=== PATIENT | female | born 1940 | race Caucasian/White ===

== ENCOUNTER 2018-10-28 12:53 | Emergency (ER) | payer MEDICARE ==
[2018-10-28] MEDS ORDERED: DUONEB 0.5-3 MG/3 ml Neb IH ONE ×2 (13:55→14:28)
--- NOTE | 2018-10-28 14:01 | ERPHSYRPT ---
- History of Present Illness Time Seen by Provider: 10/28/18 13:49 Source: patient Exam Limitations: no limitations Patient Subjective Stated Complaint: PT STATES SHE HAS BEEN SHORT OF BREATH FOR APPROX 1.5 WEEKS. STATES SHE STOPPED TAKING BUMEX APPROX 2 WEEKS AGO, BUT BEGAN TAKING AGAIN A FEW DAYS AGO. ON AND OFF ABOMINAL PAIN, NO VOMITING OR DIARRHEA. PT STATES SHE WEARS HER OXYGEN AT 5L AT HOME AND SOMETIMES IT DOESN'T FEEL LIKE IT IS ENOUGH. Triage Nursing Assessment: ALERT AND ORIENTED. FORGETFUL, PT IS POOR HISTORIAN. DAUGHTER AT BEDSIDE FROM OUT OF TOWN BUT DOES HELP PT. LUNGS DIMINSHED BILATERAL. BOWEL SOUNDS PRESENT X 4 QUADS. Physician History: 78-year-old white female with history of COPD, liver disease, arthritis, brought by her family with complaint that she's been short of breath for one half weeks occasionally complaining of periumbilical pain. She denies any chest pain she has not had any nausea no vomiting she has no diarrhea. She has some occasional periumbilical abdominal pain. She does state that she' s been on Bumex for approximately 2-3 weeks. Patient has not had any fevers. She apparently has told the nurses that oxygen at 5 L at home is not enough. Past medical history includes liver disease, COPD, arthritis Past surgical history includes hemorrhoidectomy Social history patient denies tobacco alcohol or illicit drug use Timing/Duration: week(s) (oon her half weeks) Activities at Onset: none Severity of Dyspnea-Max: mild Severity of Dyspnea-Current: mild Modifying Factors: Improves With: nothing Associated Symptoms: constant, No intermittent, No anxiety, No cough, No chest pain/discomfort, No edema, No fever, No insomnia, No loss of appetite, No lightheadedness, No wheezing, No weakness, No ankle swelling, No chills, No hemoptysis, No calf pain, No dizziness, No heaviness, No heart racing, No lightheadedness, No leg swelling, No muscle spasms feet, No muscle spasms hands , No painful breathing, No productive cough, No sweating, No tightness, No tingling face, No tingling hands International travel in last 2 weeks: No Allergies/Adverse Reactions: No Known Drug Allergies Allergy (Unverified 10/28/18 13:01) Home Medications: Albuterol Common Canister [Proventil Common Canister] 2 puff IH Q4HPRN PRN 10/28/18 [History] Bumetanide 1 mg [Bumex 1 mg] 1 mg PO UD 10/28/18 [History] Fluticasone/Salmeterol [Advair 250-50 Diskus] 1 each IH BID 10/28/18 [History] - Review of Systems Constitutional: No Fever, No Chills Eyes: No Symptoms Ears, Nose, & Throat: No Symptoms Respiratory: Dyspnea Cardiac: No Chest Pain, No Edema, No Syncope Abdominal/Gastrointestinal: Abdominal Pain (periumbilical abdominal pain), No Nausea, No Vomiting, No Diarrhea, No Constipation, No Hematemesis, No Hematochezia, No Melena, No Dysphagia, No Appetite Changes Genitourinary Symptoms: No Dysuria Musculoskeletal: No Back Pain, No Neck Pain Skin: No Rash Neurological: No Dizziness, No Focal Weakness, No Sensory Changes Psychological: No Symptoms Endocrine: No Symptoms All Other Systems: Reviewed and Negative - Past Medical History ENT History: No Pertinent History Respiratory History: COPD Endocrine Medical History: Liver Disease Musculoskeletal History: Arthritis GI Medical History: No Pertinent History History: Other Other Medical History: PT POOR HISTORIAN - Past Surgical History Past Surgical History: Yes Gastrointestinal: Hemorrhoidectomy - Social History Smoking Status: Former smoker Drug Use: none - Nursing Vital Signs Nursing Vital Signs: Initial Vital Signs Temperature 97.9 F 10/28/18 12:54 Pulse Rate 76 10/28/18 12:54 Respiratory Rate 20 10/28/18 12:54 Blood Pressure 131/75 10/28/18 12:54 O2 Sat by Pulse Oximetry 96 10/28/18 12:54 - Physical Exam General Appearance: no apparent distress Eye Exam: PERRL/EOMI Ears, Nose, Throat Exam: hearing grossly normal, normal ENT inspection, normal pharynx, No abnormal TM (R), No abnormal TM (L), No sinus pain/drainage, No hearing decreased, No nasal congestion, No pharyngeal erythema, No tonsillar exudate Neck Exam: normal inspection, supple Respiratory Exam: diminished breath sounds, No crackles/rales, No rhonchi, No wheezing Cardiovascular/Chest Exam: normal heart sounds, regular rate/rhythm Abdominal/Gastrointestinal Exam: soft, normal bowel sounds, No tenderness, No distention, No mass Extremity Exam: non-tender, normal range of motion, normal inspection, no calf tenderness, no pedal edema Peripheral Pulses Exam: dorsalis-pedis (R): 2+, dorsalis-pedis (L): 2+ Neurologic Exam: alert, oriented x 3, cooperative, corporate pilot II-XII nml as tested, sensation nml, No motor deficits Skin Exam: normal color, warm, No dry SpO2 Interpretation: normal (96%) SpO2: 96 - Course Nursing assessment & vital signs reviewed: Yes EKG Interpreted by Me: RATE (81 bpm), Sinus Rhythm, Left [place] Deviation, Other ( EKG: Sinus rhythm,, 81 beats per minute, left axis deviation, complete right bundle branch block, new since April 25, 2011,.) - Radiology Exams Chest X-ray Interpretation: Discussed w/ radiologist (chest x-ray: Chest remains hyperinflated with minimal left base infiltrates versus atelectasis. Remaining heart and lungs unremarkable. Bony thorax intact with mild degenerative changes ) Ordered Tests: Active Orders 24 hr Category Date Time Status EKG-ER Only STAT Care 10/28/18 13:55 Active IV Insertion STAT Care 10/28/18 13:55 Active Pulse Oximetry (ED) STAT Care 10/28/18 13:55 Active CHEST 1 VIEW (PORTABLE) Stat Exams 10/28/18 13:56 Completed AMYLASE Stat Lab 10/28/18 14:09 Completed CBC W DIFF Stat Lab 10/28/18 14:09 Completed CMP Stat Lab 10/28/18 14:09 Completed LIPASE Stat Lab 10/28/18 14:09 Completed NT PRO BNP Stat Lab 10/28/18 14:09 Completed TROPONIN Q3H Lab 10/28/18 14:09 Completed TROPONIN Q3H Lab 10/28/18 17:00 Ordered TROPONIN Q3H Lab 10/28/18 20:00 Ordered TROPONIN Q3H Lab 10/28/18 23:00 Ordered TROPONIN Q3H Lab 10/29/18 02:00 Ordered UA W/RFX UR CULTURE Stat Lab 10/28/18 13:56 Completed VENOUS BLOOD GAS Stat Lab 10/28/18 14:05 Completed Respiratory Therapy Assessment DAILY RT 10/29/18 07:00 Completed Medication Summary Generic Name Dose Route Start Last Admin Trade Name Freq PRN Reason Stop Dose Admin Ceftriaxone Sodium/Dextrose 1 g in 50 mls @ 100 mls/hr 10/28/18 15:45 Rocephin 1 Gm-D5w 50 Ml Bag IV 10/28/18 16:14 STAT STA Discontinued Medications Generic Name Dose Route Start Last Admin Trade Name Charley PRN Reason Stop Dose Admin Albuterol/Ipratropium 3 ml 10/28/18 13:55 10/28/18 14:30 Duoneb 0.5-3 Mg/3 Ml Neb IH 10/28/18 13:56 3 ml STAT ONE Administration Albuterol/Ipratropium Confirm 10/28/18 14:28 Duoneb 0.5-3 Mg/3 Ml Neb Administered 10/28/18 14:29 Dose 3 ml IH .STK-MED ONE Methylprednisolone Sodium Succinate 125 mg 10/28/18 15:45 Solu-Medrol 125 Mg IV 10/28/18 15:46 STAT ONE Lab/Rad Data: Laboratory Result Diagrams 10/28/18 14:09 10/28/18 14:09 Laboratory Results 10/28/18 10/28/18 10/28/18 Range/Units 14:09 14:09 14:09 WBC (4.0-10.5) K/mm3 RBC (4.1-5.4) M/mm3 Hgb (12.0-16.0) gm/dl Hct (35-47) % MCV (78-100) fl MCH (26-32) pg MCHC (32-36) g/dl RDW (11.5-14.0) % Plt Count (150-450) K/mm3 MPV (6-9.5) fl Gran % (36.0-66.0) % Eos # (Auto) (0-0.5) Absolute Lymphs (auto) (1.0-4.6) Absolute Monos (auto) (0.0-1.3) Lymphocytes % (24.0-44.0) % Monocytes % (0.0-12.0) % Eosinophils % (0.00-5.0) % Basophils % (0.0-0.4) % Absolute Granulocytes (1.4-6.9) Basophils # (0-0.4) pO2/FiO2 Ratio % VBG pH (7.32-7.42) VBG pCO2 at Pat Temp (42-55) mm/Hg VBG pO2 at Pat Temp (25-40) mm/Hg VBG HCO3 (22-28) meq/L VBG O2 Sat (Ryann) (95-100) VBG Base Excess (-2.0-2.0) VBG Hemoglobin VBG Carboxyhemoglobin (0.0-6.9) % T HGB POC Potassium (3.5-5.1) Sodium 142 (137-145) mmol/L Potassium 3.5 (3.5-5.1) mmol/L Chloride 95 L (98-107) mmol/L Carbon Dioxide 37 H (22-30) mmol/L Anion Gap 12.8 (5-15) MEQ/L BUN 12 (7-17) mg/dL Creatinine 0.75 (0.52-1.04) mg/dL Estimated GFR > 60.0 ML/MIN Glucose 94 (74-106) mg/dL Calcium 9.9 (8.4-10.2) mg/dL Total Bilirubin 0.60 (0.2-1.3) mg/dL AST 24 (14-36) U/L ALT 15 (0-35) U/L Alkaline Phosphatase 73 (38-126) U/L Troponin I < 0.012 (0.000-0.034) ng/mL NT-Pro-B Natriuret Pep 202 (0-1800) pg/mL Serum Total Protein 7.8 (6.3-8.2) g/dL Albumin 4.3 (3.5-5.0) g/dL Amylase 35 (30-110) U/L Lipase 70 (23-300) U/L Urine Color (YELLOW) Urine Appearance (CLEAR) Urine pH (5-6) Ur Specific [place] (1.005-1.025) Urine Protein (Negative) Urine Ketones (NEGATIVE) Urine Blood (0-5) [place]/ul Urine Nitrite (NEGATIVE) Urine Bilirubin (NEGATIVE) Urine Urobilinogen (0-1) mg/dL Ur Leukocyte Esterase (NEGATIVE) Urine WBC (Auto) (0-5) /HPF Urine RBC (Auto) (0-2) /HPF U Epithel Cells (Auto) (FEW) /HPF Urine Bacteria (Auto) (NEGATIVE) /HPF Urine Mucus (Auto) (NEGATIVE) /HPF Urine Culture Reflexed (NO) Urine Glucose (NEGATIVE) mg/dL 10/28/18 10/28/18 10/28/18 Range/Units 14:09 14:05 13:56 WBC 7.8 (4.0-10.5) K/mm3 RBC 4.47 (4.1-5.4) M/mm3 Hgb 13.9 (12.0-16.0) gm/dl Hct 43.6 (35-47) % MCV 97.5 (78-100) fl MCH 31.1 (26-32) pg MCHC 31.9 L (32-36) g/dl RDW 13.3 (11.5-14.0) % Plt Count 219 (150-450) K/mm3 MPV 9.3 (6-9.5) fl Gran % 63.1 (36.0-66.0) % Eos # (Auto) 0.17 (0-0.5) Absolute Lymphs (auto) 2.00 (1.0-4.6) Absolute Monos (auto) 0.66 (0.0-1.3) Lymphocytes % 25.8 (24.0-44.0) % Monocytes % 8.5 (0.0-12.0) % Eosinophils % 2.2 (0.00-5.0) % Basophils % 0.4 (0.0-0.4) % Absolute Granulocytes 4.90 (1.4-6.9) Basophils # 0.03 (0-0.4) pO2/FiO2 Ratio 21.0 % VBG pH 7.40 (7.32-7.42) VBG pCO2 at Pat Temp 63 H* (42-55) mm/Hg VBG pO2 at Pat Temp 41 H (25-40) mm/Hg VBG HCO3 39.0 H* (22-28) meq/L VBG O2 Sat (Ryann) 82.1 L (95-100) VBG Base Excess 11.4 H (-2.0-2.0) VBG Hemoglobin 14.3 VBG Carboxyhemoglobin 2.6 (0.0-6.9) % T HGB POC Potassium 3.4 L (3.5-5.1) Sodium (137-145) mmol/L Potassium (3.5-5.1) mmol/L Chloride (98-107) mmol/L Carbon Dioxide (22-30) mmol/L Anion Gap (5-15) MEQ/L BUN (7-17) mg/dL Creatinine (0.52-1.04) mg/dL Estimated GFR ML/MIN Glucose (74-106) mg/dL Calcium (8.4-10.2) mg/dL Total Bilirubin (0.2-1.3) mg/dL AST (14-36) U/L ALT (0-35) U/L Alkaline Phosphatase (38-126) U/L Troponin I (0.000-0.034) ng/mL NT-Pro-B Natriuret Pep (0-1800) pg/mL Serum Total Protein (6.3-8.2) g/dL Albumin (3.5-5.0) g/dL Amylase (30-110) U/L Lipase (23-300) U/L Urine Color YELLOW (YELLOW) Urine Appearance SLIGHTLY CLOUDY (CLEAR) Urine pH 8.0 (5-6) Ur Specific [place] 1.013 (1.005-1.025) Urine Protein NEGATIVE (Negative) Urine Ketones NEGATIVE (NEGATIVE) Urine Blood NEGATIVE (0-5) [place]/ul Urine Nitrite NEGATIVE (NEGATIVE) Urine Bilirubin NEGATIVE (NEGATIVE) Urine Urobilinogen 2 (0-1) mg/dL Ur Leukocyte Esterase MODERATE (NEGATIVE) Urine WBC (Auto) 6-10 (0-5) /HPF Urine RBC (Auto) 0-2 (0-2) /HPF U Epithel Cells (Auto) RARE (FEW) /HPF Urine Bacteria (Auto) RARE (NEGATIVE) /HPF Urine Mucus (Auto) SLIGHT (NEGATIVE) /HPF Urine Culture Reflexed NO (NO) Urine Glucose NEGATIVE (NEGATIVE) mg/dL - Progress Progress: improved Air Movement: fair Progress Note: 10/28/18 15:46 Patient feeling better after DuoNeb treatment. Patient with a chest x-ray remarkable for hyperinflated chest with minimal left base infiltrate versus atelectasis. Patient with mildly elevated PCO2 of 60. Patient wants to go home she appears to be doing well she has oxygen as well as nebulizers at home will go ahead and give patient Rocephin 1 g IV Solu-Medrol 125 IV plan home with Zithromax and tapering dose of prednisone patient to continue her inhalers at home. . - Departure Departure Disposition: Home Clinical Impression: Shortness of breath, COPD with exacerbation Condition: Fair Critical Care Time: No Referrals: Provider,Unknown [Primary Care Provider] - Instructions: Chronic Obstructive Pulmonary Disease, Exacerbation of COPD (DC) Additional Instructions: Return home. Use your nebulizers as directed by your family . Zithromax as prescribed. Tapering prednisone as prescribed. Followup with your family call and make an appointment for followup. Return for acute distress or for severe symptoms. Prescriptions: Azithromycin 250 mg [Zithromax 250 MG TABLET] 0 mg PO ZPACK #6 tablet
[2018-10-28 14:13] LABS: BASOPHIL % 0.4 % (0.0-0.4); Basophil (Absolute #) 0.03 (0-0.4); Eosinophil % 2.2 % (0.00-5.0); Eosinophil (Absolute #) 0.17 (0-0.5); Granulocytes % 63.1 % (36.0-66.0); Hematocrit 43.6 % (35-47); Hemoglobin 13.9 gm/dl (12.0-16.0); Lymphocytes % 25.8 % (24.0-44.0); Mean Cell Volume 97.5 fl (78-100); Mean Corpuscular Hemoglobin 31.1 pg (26-32); Mean Corpuscular Hgb Concent. 31.9 g/dl (32-36); Mean Platelet Volume 9.3 fl (6-9.5); Monocyte (Absolute #) 0.66 (0.0-1.3); Monocytes % 8.5 % (0.0-12.0); Platelet Count 219 K/mm3 (150-450); Red Blood Count 4.47 M/mm3 (4.1-5.4); Red Cell Distribution Width 13.3 % (11.5-14.0); White Blood Count 7.8 K/mm3 (4.0-10.5)
[2018-10-28 14:14] LABS: VBG BASE EXCESS 11.4 (-2.0-2.0); VBG CARBOXYHEMOGLOBIN 2.6 % T HGB (0.0-6.9); VBG HEMOGLOBIN 14.3; VBG O2 SATURATION 82.1 (95-100); VBG POTASSIUM 3.4 (3.5-5.1); VBG pH 7.4 (7.32-7.42)
[2018-10-28 14:26] LABS: AMYLASE 35 U/L (30-110); LIPASE 70 U/L (23-300)
[2018-10-28 14:28] LABS: Appearance SLIGHTLY CLOUDY (CLEAR); Bacteria RARE /HPF (NEGATIVE); Bilirubin NEGATIVE (NEGATIVE); Blood NEGATIVE Ery/ul (0-5); Epithelial Cells RARE /HPF (FEW); Glucose NEGATIVE (NEGATIVE); Ketones NEGATIVE (NEGATIVE); Leukocyte Esterase MODERATE (NEGATIVE); Mucus SLIGHT /HPF (NEGATIVE); Nitrite NEGATIVE (NEGATIVE); Protein,Urine Dip NEGATIVE (Negative); RBC 0-2 /HPF (0-2); Specific Gravity 1.013 (1.005-1.025); Urobilinogen 2 mg/dL (0-1)
[2018-10-28 14:35] LABS: ALBUMIN 4.3 g/dL (3.5-5.0); ALKALINE PHOSPHATASE 73 U/L (38-126); ANION GAP 12.8 MEQ/L (5-15); BLOOD UREA NITROGEN 12 mg/dL (7-17); CHLORIDE 95 mmol/L (98-107); Calcium 9.9 mg/dL (8.4-10.2); Carbon Dioxide 37 mmol/L (22-30); Creatinine 1 0.75 mg/dL (0.52-1.04); Glucose 94 mg/dL (74-106); NT PRO BNP 202 pg/mL (0-1800); Potassium 3.5 mmol/L (3.5-5.1); SGOT/AST 24 U/L (14-36); SGPT/ALT 15 U/L (0-35); SODIUM 142 mmol/L (137-145); Total Protein 7.8 g/dL (6.3-8.2)
[2018-10-28 14:44] VITALS: O2SAT 96
--- NOTE | 2018-10-28 14:54 | XRAY ---
Indication: Short of breath. Comparison: September 04, 2012. Portable chest remains hyperinflated again with minimal left base infiltrate versus atelectasis. Remaining heart and lungs unremarkable. Bony thorax intact again with mild degenerative changes.
[2018-10-28] MEDS ORDERED: solu-MEDROL 125 MG IV ONE (15:45)
[2018-10-28] MEDS ORDERED: ROCEPHIN 1 Gm-D5w 50 ml Bag** 1 G/50 ML IVPB IV STA (15:45)
[2018-10-28] MEDS ORDERED: solu-MEDROL 125 MG ONE (16:02)
[2018-10-28] MEDS ORDERED: ROCEPHIN 1 Gm-D5w 50 ml Bag** 1 G/50 ML IVPB IV ONE (16:02)
[2018-10-28 16:56] VITALS: BP 110/79; PULSE 72
== END 2018-10-28 17:00 | disposition home or self-care (01) ==
LOC: ED 12:53
DX: R06.02 Shortness of breath (principal); J44.1 Chronic obstructive pulmonary disease with (acute) exacerbation; K76.9 Liver disease, unspecified; M19.90 Unspecified osteoarthritis, unspecified site; Z79.899 Other long term (current) drug therapy
CPT/HCPCS: 36000; 36415; 71045; 80053; 81001; 82150; 82805; 83690; 83880; 84484; 85025; 93005; 94640; 96365; 96374; 99284; J0696; J2930; A9270-GY

== ENCOUNTER 2020-02-11 17:28 | Emergency (ER) | payer MEDICARE ==
--- NOTE | 2020-02-11 17:52 | ERPHSYRPT ---
- History of Present Illness Time Seen by Provider: 02/11/20 17:44 Source: patient Exam Limitations: no limitations Patient Subjective Stated Complaint: pt began having weakness approx 2 days and feeling nauseous Triage Nursing Assessment: Pt brought to the ER by her son, hypertensive, denies pain, no edema, pulses normal, skin n/w/d, doesn't appear to be in any distress Physician History: Patient is a 79-year-old female presents to our ED with complaints of generalized weakness for 2 days. Patient additionally states she feels somewhat nauseous. Patient denies pain. No fever. No vomiting. No diarrhea. No rash. Symptoms are constant. Patient states that she has been moving doing a lot of bending and lifting and thinks that this may be contributing to her feeling or sensation of generalized weakness. Patient voices no other complaints concerns at this time. Timing/Duration: day(s) (2 days) Severity: moderate Modifying Factors: Improves With: other Associated Symptoms: nausea, No vomiting, No abdominal pain, No shortness of breath, No heartburn, No diaphoresis, No cough, No chills, No chest pain, No fever, No headaches, No loss of appetite, No malaise, No rash, No syncope Allergies/Adverse Reactions: No Known Drug Allergies Allergy (Verified 02/11/20 17:47) Home Medications: Albuterol Common Canister [Ventolin Common Canister] 2 puff IH Q4HPRN PRN 10/28/18 [History] Fluticasone/Salmeterol [Advair 250-50 Diskus] 1 each IH BID 10/28/18 [History] Albuterol 8 gm Mdi Hfa [Ventolin Hfa MDI] 1 inh PO UD 02/11/20 [History] Travel Risk - International Travel Have you traveled outside of the country in past 3 weeks: No - Coronavirus Screening Are you exhibiting any of the following symptoms?: No Close contact with a COVID-19 positive Pt in past 14-21 Days: No - Review of Systems Constitutional: No Symptoms, No Fever, No Chills Eyes: No Symptoms Ears, Nose, & Throat: No Symptoms Respiratory: No Symptoms, No Cough, No Dyspnea Cardiac: No Symptoms, No Chest Pain, No Edema, No Syncope Abdominal/Gastrointestinal: No Symptoms, No Abdominal Pain, No Nausea, No Vomiting, No Diarrhea Genitourinary Symptoms: No Symptoms, No Dysuria Musculoskeletal: No Symptoms, No Back Pain, No Neck Pain Skin: No Symptoms, No Rash Neurological: No Symptoms, No Dizziness, No Focal Weakness, No Sensory Changes Psychological: No Symptoms Endocrine: No Symptoms Hematologic/Lymphatic: No Symptoms Immunological/Allergic: No Symptoms All Other Systems: Reviewed and Negative - Past Medical History Pertinent Past Medical History: Yes ENT History: No Pertinent History Respiratory History: COPD Endocrine Medical History: Liver Disease Musculoskeletal History: Arthritis GI Medical History: No Pertinent History History: Other Other Medical History: PT POOR HISTORIAN - Past Surgical History Past Surgical History: Yes Gastrointestinal: Hemorrhoidectomy - Social History Smoking Status: Former smoker Exposure to second hand smoke: No Drug Use: none Patient Lives Alone: Yes - Female History Hx Now: No - Nursing Vital Signs Nursing Vital Signs: Initial Vital Signs Temperature 98.7 F 02/11/20 17:40 Pulse Rate 86 02/11/20 17:40 Respiratory Rate 18 02/11/20 17:40 Blood Pressure 162/91 02/11/20 17:40 O2 Sat by Pulse Oximetry 96 02/11/20 17:40 Pain Scale Pain Intensity 0 - Physical Exam General Appearance: no apparent distress, alert Eye Exam: PERRL/EOMI, eyes nml inspection Ears, Nose, Throat Exam: normal ENT inspection, TMs normal, pharynx normal, m oist mucous membranes Neck Exam: normal inspection, non-tender, supple, full range of motion Respiratory Exam: normal breath sounds, lungs clear, No respiratory distress Cardiovascular Exam: regular rate/rhythm, normal heart sounds, normal peripheral pulses Gastrointestinal/Abdomen Exam: soft, normal bowel sounds, No tenderness, No mass Back Exam: normal inspection, normal range of motion, No CVA tenderness, No vertebral tenderness Extremity Exam: normal inspection, normal range of motion, pelvis stable Neurologic Exam: alert, oriented x 3, cooperative, normal mood/affect, nml cerebellar function, nml station & gait, sensation nml, No motor deficits Skin Exam: normal color, warm, dry, No rash Lymphatic Exam: No adenopathy SpO2 Interpretation: normal SpO2: 96 O2 Delivery: Room Air - Course Nursing assessment & vital signs reviewed: Yes EKG Interpreted by Me: RATE (84), Sinus Rhythm, NORMAL AXIS, Left Bundle Branch Block, Other (EKG unchanged from previous EKG dated October 28, 2018.) - Radiology Exams Chest X-ray Interpretation: Teleradiologist Report (Stable subtle left base infiltrate versus atelectasis COPD.) Ordered Tests: Active Orders 24 hr Category Date Time Status Manager Sign STAT Care 02/11/20 17:48 Active EKG-ER Only STAT Care 02/11/20 17:48 Active IV Insertion STAT Care 02/11/20 17:48 Active Pulse Oximetry (ED) STAT Care 02/11/20 17:48 Active CHEST 1 VIEW (PORTABLE) Stat Exams 02/11/20 17:48 Taken CBC W DIFF Stat Lab 02/11/20 18:00 Completed CMP Stat Lab 02/11/20 18:00 Completed MAGNESIUM Stat Lab 02/11/20 18:00 Completed TROPONIN Q3H Lab 02/11/20 18:00 Completed TROPONIN Q3H Lab 02/11/20 21:04 Completed TROPONIN Q3H Lab 02/12/20 00:00 Ordered TROPONIN Q3H Lab 02/12/20 03:00 Ordered TROPONIN Q3H Lab 02/12/20 06:00 Ordered UA W/RFX UR CULTURE Stat Lab 02/11/20 19:19 Completed Lab/Rad Data: Laboratory Result Diagrams 02/11/20 18:00 02/11/20 18:00 Laboratory Results 02/11/20 02/11/20 02/11/20 Range/Units 21:04 19:19 18:00 WBC (4.0-10.5) K/mm3 RBC (4.1-5.4) M/mm3 Hgb (12.0-16.0) gm/dl Hct (35-47) % MCV (78-100) fl MCH (26-32) pg MCHC (32-36) g/dl RDW (11.5-14.0) % Plt Count (150-450) K/mm3 MPV (7.5-11.0) fl Gran % (36.0-66.0) % Eos # (Auto) (0-0.5) Absolute Lymphs (auto) (1.0-4.6) Absolute Monos (auto) (0.0-1.3) Lymphocytes % (24.0-44.0) % Monocytes % (0.0-12.0) % Eosinophils % (0.00-5.0) % Basophils % (0.0-0.4) % Absolute Granulocytes (1.4-6.9) Basophils # (0-0.4) Sodium (137-145) mmol/L Potassium (3.5-5.1) mmol/L Chloride (98-107) mmol/L Carbon Dioxide (22-30) mmol/L Anion Gap (5-15) MEQ/L BUN (7-17) mg/dL Creatinine (0.52-1.04) mg/dL Estimated GFR ML/MIN Glucose (74-106) mg/dL Calcium (8.4-10.2) mg/dL Magnesium (1.6-2.3) mg/dL Total Bilirubin (0.2-1.3) mg/dL AST (14-36) U/L ALT (0-35) U/L Alkaline Phosphatase (38-126) U/L Troponin I < 0.012 < 0.012 (0.000-0.034) ng/mL Serum Total Protein (6.3-8.2) g/dL Albumin (3.5-5.0) g/dL Urine Color STRAW (YELLOW) Urine Appearance CLEAR (CLEAR) Urine pH 8.0 (5-6) Ur Specific [place] 1.004 (1.005-1.025) Urine Protein NEGATIVE (Negative) Urine Ketones NEGATIVE (NEGATIVE) Urine Blood SMALL (0-5) [place]/ul Urine Nitrite NEGATIVE (NEGATIVE) Urine Bilirubin NEGATIVE (NEGATIVE) Urine Urobilinogen NEGATIVE (0-1) mg/dL Ur Leukocyte Esterase SMALL (NEGATIVE) Urine WBC (Auto) 3-5 (0-5) /HPF Urine RBC (Auto) NONE (0-2) /HPF U Epithel Cells (Auto) NONE (FEW) /HPF Urine Bacteria (Auto) NONE (NEGATIVE) /HPF Other Casts (Auto) NEGATIVE (NEGATIVE) /LPF Urine Culture Reflexed NO (NO) Urine Glucose NEGATIVE (NEGATIVE) mg/dL 02/11/20 02/11/20 Range/Units 18:00 18:00 WBC 6.6 (4.0-10.5) K/mm3 RBC 4.48 (4.1-5.4) M/mm3 Hgb 13.4 (12.0-16.0) gm/dl Hct 43.7 (35-47) % MCV 97.5 (78-100) fl MCH 29.9 (26-32) pg MCHC 30.7 L (32-36) g/dl RDW 13.1 (11.5-14.0) % Plt Count 190 (150-450) K/mm3 MPV 9.8 (7.5-11.0) fl Gran % 65.8 (36.0-66.0) % Eos # (Auto) 0.19 (0-0.5) Absolute Lymphs (auto) 1.48 (1.0-4.6) Absolute Monos (auto) 0.57 (0.0-1.3) Lymphocytes % 22.4 L (24.0-44.0) % Monocytes % 8.6 (0.0-12.0) % Eosinophils % 2.9 (0.00-5.0) % Basophils % 0.3 (0.0-0.4) % Absolute Granulocytes 4.35 (1.4-6.9) Basophils # 0.02 (0-0.4) Sodium 137 (137-145) mmol/L Potassium 4.0 (3.5-5.1) mmol/L Chloride 95 L (98-107) mmol/L Carbon Dioxide 36 H (22-30) mmol/L Anion Gap 10.3 (5-15) MEQ/L BUN 13 (7-17) mg/dL Creatinine 0.66 (0.52-1.04) mg/dL Estimated GFR > 60.0 ML/MIN Glucose 98 (74-106) mg/dL Calcium 9.7 (8.4-10.2) mg/dL Magnesium 2.0 (1.6-2.3) mg/dL Total Bilirubin 0.60 (0.2-1.3) mg/dL AST 27 (14-36) U/L ALT 13 (0-35) U/L Alkaline Phosphatase 65 (38-126) U/L Troponin I (0.000-0.034) ng/mL Serum Total Protein 7.7 (6.3-8.2) g/dL Albumin 4.5 (3.5-5.0) g/dL Urine Color (YELLOW) Urine Appearance (CLEAR) Urine pH (5-6) Ur Specific [place] (1.005-1.025) Urine Protein (Negative) Urine Ketones (NEGATIVE) Urine Blood (0-5) [place]/ul Urine Nitrite (NEGATIVE) Urine Bilirubin (NEGATIVE) Urine Urobilinogen (0-1) mg/dL Ur Leukocyte Esterase (NEGATIVE) Urine WBC (Auto) (0-5) /HPF Urine RBC (Auto) (0-2) /HPF U Epithel Cells (Auto) (FEW) /HPF Urine Bacteria (Auto) (NEGATIVE) /HPF Other Casts (Auto) (NEGATIVE) /LPF Urine Culture Reflexed (NO) Urine Glucose (NEGATIVE) mg/dL - Progress Progress: improved Progress Note: 02/11/20 21:57 Patient reassessed. She feels well. Patient requesting discharge. Chest x-ray negative as compared to previous per radiology. Troponin negative x2. Patient requesting discharge. Will discharge home. Patient agrees to follow-up with her primary care doctor within 48 hours for reevaluation. 02/11/20 21:58 Counseled pt/family regarding: lab results, diagnosis, need for follow-up, rad results - Departure Departure Disposition: Home Clinical Impression: Generalized weakness Condition: Stable Critical Care Time: No Referrals: DOCTOR,NO FAMILY [Primary Care Provider] - TYSHAWN AMES [ACTIVE STAFF] - Additional Instructions: Discharge/Care Plan ALESIA LOWRY was seen on 02/11/20 in the Emergency Room. The patient was counseled regarding Diagnosis,Lab results, Imaging studies, need for follow up and when to return to the Emergency Room. Prescriptions given: Discharge Note I have spoken with the patient and/or caregivers. I have explained the patient's condition, diagnosis and treatment plan based on the information available to me at this time. I have answered the patient's and/or caregiver's questions and addressed any concerns. The patient and/or caregivers have as good understanding of the patient's diagnosis, condition and treatment plan as can be expected at this point. The vital signs have been stable. The patient's condition is stable and appropriate for discharge from the emergency department. The patient will pursue further outpatient evaluation with the primary care physician or other designated or consulting physician as outlined in the discharge instructions. The patient and/or caregivers are agreeable to this plan of care and follow-up instructions have been explained in detail. The patient and/or caregivers have received these instruction. The patient/and or caregivers are aware that any significant change in condition or worsening of symptoms should prompt an immediate return to this or the closest emergency department or call 911.
[2020-02-11 18:05] LABS: Absolute Neutrophil Ct (ANC) 4.35 (1.4-6.9); BASOPHIL % 0.3 % (0.0-0.4); Basophil (Absolute #) 0.02 (0-0.4); Eosinophil % 2.9 % (0.00-5.0); Eosinophil (Absolute #) 0.19 (0-0.5); Hematocrit 43.7 % (35-47); Hemoglobin 13.4 gm/dl (12.0-16.0); Lymphocyte (Absolute #) 1.48 (1.0-4.6); Lymphocytes % 22.4 % (24.0-44.0); Mean Cell Volume 97.5 fl (78-100); Mean Corpuscular Hemoglobin 29.9 pg (26-32); Mean Corpuscular Hgb Concent. 30.7 g/dl (32-36); Mean Platelet Volume 9.8 fl (7.5-11.0); Monocyte (Absolute #) 0.57 (0.0-1.3); Monocytes % 8.6 % (0.0-12.0); Neutrophil % 65.8 % (36.0-66.0); Platelet Count 190 K/mm3 (150-450); Red Blood Count 4.48 M/mm3 (4.1-5.4); Red Cell Distribution Width 13.1 % (11.5-14.0); White Blood Count 6.6 K/mm3 (4.0-10.5)
[2020-02-11 18:18] LABS: ALBUMIN 4.5 g/dL (3.5-5.0); ALKALINE PHOSPHATASE 65 U/L (38-126); ANION GAP 10.3 MEQ/L (5-15); BLOOD UREA NITROGEN 13 mg/dL (7-17); CHLORIDE 95 mmol/L (98-107); Calcium 9.7 mg/dL (8.4-10.2); Carbon Dioxide 36 mmol/L (22-30); Creatinine 1 0.66 mg/dL (0.52-1.04); EST GLOMERULAR FILTRATION RATE > 60.0 ML/MIN; Glucose 98 mg/dL (74-106); SGOT/AST 27 U/L (14-36); SGPT/ALT 13 U/L (0-35); SODIUM 137 mmol/L (137-145); Total Protein 7.7 g/dL (6.3-8.2)
[2020-02-11 19:42] LABS: Appearance CLEAR (CLEAR); Bilirubin NEGATIVE (NEGATIVE); Blood SMALL Ery/ul (0-5); Glucose NEGATIVE (NEGATIVE); Ketones NEGATIVE (NEGATIVE); Leukocyte Esterase SMALL (NEGATIVE); Nitrite NEGATIVE (NEGATIVE); Protein,Urine Dip NEGATIVE (Negative); Specific Gravity 1.004 (1.005-1.025); Urobilinogen NEGATIVE mg/dL (0-1)
[2020-02-11 22:06] VITALS: BP 117/67; PULSE 82; O2SAT 99
[2020-02-11] MEDS ORDERED: ZOFRAN ODT 4 MG PO ONE (22:24)
[2020-02-11] MEDS ORDERED: ZOFRAN ODT 4 MG ONE (22:25)
--- NOTE | 2020-02-12 08:40 | XRAY ---
Indication: Pneumonia. Comparison: October 28, 2018. Portable chest again hyperinflated with subtle left base infiltrate/atelectasis. Remaining heart and lungs unremarkable. Bony thorax intact again with mild osteopenia and degenerative changes.
== END 2020-02-11 22:33 | disposition home or self-care (01) ==
LOC: ED 17:28
DX: R53.1 Weakness (principal); J44.9 Chronic obstructive pulmonary disease, unspecified; K76.9 Liver disease, unspecified
CPT/HCPCS: 36000; 36415; 71045; 80053; 81001; 83735; 84484; 85025; 93005; 93041; 94760; 99284; Q0162

== ENCOUNTER 2020-09-13 19:22 | Emergency (ER) | payer MEDICARE ==
[2020-09-13] MEDS ORDERED: Zofran 4 MG/2 ML VIAL IV ONE (19:37)
[2020-09-13] MEDS ORDERED: MORPHINE SULFATE 2 MG INJ IV ONE (19:37)
[2020-09-13] MEDS ORDERED: Sodium Chloride 0.9% 1000 ML 1,000 ML IV SCH (19:45)
[2020-09-13] MEDS ORDERED: Zofran 4 MG/2 ML VIAL ONE (20:00)
[2020-09-13] MEDS ORDERED: Sodium Chloride 0.9% 1000 ML 1,000 ML ONE (20:00)
[2020-09-13] MEDS ORDERED: MORPHINE SULFATE 2 MG INJ ONE (20:00)
[2020-09-13 20:13] LABS: Absolute Neutrophil Ct (ANC) 5.11 (1.4-6.9); BASOPHIL % 0.4 % (0.0-0.4); Basophil (Absolute #) 0.03 (0-0.4); Eosinophil % 1.2 % (0.00-5.0); Eosinophil (Absolute #) 0.09 (0-0.5); Hematocrit 42.8 % (35-47); Hemoglobin 13.9 gm/dl (12.0-16.0); Lymphocyte (Absolute #) 1.76 (1.0-4.6); Lymphocytes % 22.8 % (24.0-44.0); Mean Cell Volume 91.8 fl (78-100); Mean Corpuscular Hemoglobin 29.8 pg (26-32); Mean Corpuscular Hgb Concent. 32.5 g/dl (32-36); Mean Platelet Volume 9.7 fl (7.5-11.0); Monocyte (Absolute #) 0.73 (0.0-1.3); Monocytes % 9.5 % (0.0-12.0); Neutrophil % 66.1 % (36.0-66.0); Platelet Count 226 K/mm3 (150-450); Red Blood Count 4.66 M/mm3 (4.1-5.4); Red Cell Distribution Width 12.9 % (11.5-14.0); White Blood Count 7.7 K/mm3 (4.0-10.5)
[2020-09-13 20:19] LABS: ALBUMIN 4.5 g/dL (3.5-5.0); ALKALINE PHOSPHATASE 66 U/L (38-126); ANION GAP 13.6 MEQ/L (5-15); BLOOD UREA NITROGEN 6 mg/dL (7-17); CHLORIDE 87 mmol/L (98-107); Calcium 9.5 mg/dL (8.4-10.2); Carbon Dioxide 30 mmol/L (22-30); Creatinine 1 0.68 mg/dL (0.52-1.04); EST GLOMERULAR FILTRATION RATE > 60.0 ML/MIN; Glucose 103 mg/dL (74-106); LIPASE 56 U/L (23-300); Potassium 3.7 mmol/L (3.5-5.1); SGOT/AST 27 U/L (14-36); SGPT/ALT 12 U/L (0-35); SODIUM 127 mmol/L (137-145); Total Protein 7.6 g/dL (6.3-8.2)
[2020-09-13 20:23] LABS: Appearance CLEAR (CLEAR); Bilirubin NEGATIVE (NEGATIVE); Blood SMALL Ery/ul (0-5); Epithelial Cells RARE /HPF (FEW); Glucose NEGATIVE (NEGATIVE); Ketones NEGATIVE (NEGATIVE); Leukocyte Esterase SMALL (NEGATIVE); Nitrite NEGATIVE (NEGATIVE); Protein,Urine Dip NEGATIVE (Negative); RBC 0-2 /HPF (0-2); Specific Gravity 1.002 (1.005-1.025); Urobilinogen NEGATIVE mg/dL (0-1)
--- NOTE | 2020-09-13 20:33 | ERPHSYRPT ---
- History of Present Illness Time Seen by Provider: 09/13/20 19:45 Historian: patient Exam Limitations: no limitations Patient Subjective Stated Complaint: Patient states " I have been having alot of ABD pain last 4 days and I thought it was my liver acting up but the pain just isn't getting better despite changing my diet." Triage Nursing Assessment: Patient arrived to ED and ambulated to room without difficulty. Gait slow and steady. Patient A/O times 4. Patient able to follow instructions without difficulty. Lungs diminished A/P throughout. Patient denies SOB. Patient denies any chest pain. Cap refill < 3 seconds. Patient noted to wear 02 at 3L per N/C at all times. 02 sat 97-100%. No S/S of respiratory distress noted. + BS times 4 quads. ABD soft, round, non-distended. Patient noted to complain of tenderness upon palpitation on left upper side of ABD. No rebound pain noted. Patient states she has been having nausea but no vomiting. Patient states her appetite has declined in last couple of days and she has been eating alot of chicken broth. Patient states her fluid intake has been the same. Skin turgor 3-4 seconds. Oral mucosa moist. Patient states she thinks it may be her liver because she had a liver attack about 13 years ago and the pain and discomfort reminds her of that time. No dependent edema noted. + Pedal and radi al pulses noted bilateral. Urine collected and yellow urine with no odor noted. Patient denies any pain or burning upon urination. Physician History: Patient is an 80-year-old female presents to our ED for evaluation of epigastric pain. Pain started approximately 4 days ago. Pain has been constant. Patient changed her diet to see if this will resolve her symptoms however her symptoms continued. Pain described as an ache that is across the epigastrium. No specific worsening or improving factors. No associated trauma. No fever. No nausea or vomiting. No diarrhea. No rash. Patient states she has a history of "liver attack". Patient thought she was having another liver attack. No associated chest pain or shortness of breath. No diaphoresis. Mother voices no other complaints or concerns at this time. Timing/Duration: day(s) (4 days ago) Activities at Onset: none Quality: aching Abdominal Pain Onset Location: epigastric Pain Radiation: no radiation Severity of Pain-Max: moderate Severity of Pain-Current: mild Modifying Factors: Improves With: nothing Associated Symptoms: denies symptoms Previous symptoms: same symptoms as today Allergies/Adverse Reactions: No Known Drug Allergies Allergy (Verified 09/13/20 19:40) Home Medications: Albuterol Common Canister [Ventolin Common Canister] 2 puff IH Q4HPRN PRN 10/28/18 [History] Fluticasone/Salmeterol [Advair 250-50 Diskus] 1 each IH BID 10/28/18 [History] Albuterol 8 gm Mdi Hfa [Ventolin Hfa MDI] 1 inh PO UD 02/11/20 [History] Hx Tetanus, Diphtheria Vaccination/Date Given: No Hx Influenza Vaccination/Date Given: Yes Hx Pneumococcal Vaccination/Date Given: Yes Immunizations Up to Date: Yes Travel Risk - International Travel Have you traveled outside of the country in past 3 weeks: No - Coronavirus Screening Are you exhibiting any of the following symptoms?: No Close contact with a COVID-19 positive Pt in past 14-21 Days: No - Vaccine Status Have you recieved a Covid-19 vaccination: No - Review of Systems Constitutional: No Symptoms, No Fever, No Chills Eyes: No Symptoms Ears, Nose, & Throat: No Symptoms Respiratory: No Symptoms, No Cough, No Dyspnea Cardiac: No Symptoms, No Chest Pain, No Edema, No Syncope Abdominal/Gastrointestinal: No Symptoms, No Abdominal Pain, No Nausea, No Vomiting, No Diarrhea Genitourinary Symptoms: No Symptoms, No Dysuria Musculoskeletal: No Symptoms, No Back Pain, No Neck Pain Skin: No Symptoms, No Rash Neurological: No Symptoms, No Dizziness, No Focal Weakness, No Sensory Changes Psychological: No Symptoms Endocrine: No Symptoms Hematologic/Lymphatic: No Symptoms Immunological/Allergic: No Symptoms All Other Systems: Reviewed and Negative - Past Medical History Pertinent Past Medical History: Yes Neurological History: No Pertinent History ENT History: Cataracts Cardiac History: No Pertinent History Respiratory History: COPD Endocrine Medical History: Liver Disease Musculoskeletal History: Arthritis GI Medical History: No Pertinent History History: Other Psycho-Social History: No Pertinent History Female Reproductive Disorders: No Pertinent History Other Medical History: PT POOR HISTORIAN - Past Surgical History Past Surgical History: Yes Neuro Surgical History: No Pertinent History Cardiac: No Pertinent History Respiratory: No Pertinent History Gastrointestinal: Hemorrhoidectomy Genitourinary: No Pertinent History Musculoskeletal: No Pertinent History Female Surgical History: No Pertinent History - Social History Smoking Status: Former smoker Exposure to second hand smoke: No Drug Use: none Patient Lives Alone: Yes - Female History Hx Last Menstrual Period: POST Hx Now: No - Nursing Vital Signs Nursing Vital Signs: Initial Vital Signs Temperature 98.2 F 09/13/20 19:39 Pulse Rate 92 H 09/13/20 19:39 Respiratory Rate 18 09/13/20 19:39 Blood Pressure 179/78 09/13/20 19:39 O2 Sat by Pulse Oximetry 97 09/13/20 19:39 Pain Scale Pain Intensity 4 - Physical Exam General Appearance: no apparent distress, alert Eye Exam: PERRL/EOMI, eyes nml inspection Ears, Nose, Throat Exam: normal ENT inspection, pharynx normal, moist mucous membranes Neck Exam: normal inspection, non-tender, supple, full range of motion Respiratory Exam: normal breath sounds, lungs clear, No respiratory distress Cardiovascular Exam: regular rate/rhythm, normal heart sounds Gastrointestinal/Abdomen Exam: soft, No tenderness, No mass Back Exam: normal inspection, normal range of motion, No CVA tenderness, No vertebral tenderness Extremity Exam: normal inspection, normal range of motion, pelvis stable Neurologic Exam: alert, oriented x 3, cooperative, normal mood/affect, nml cerebellar function, sensation nml, No motor deficits Skin Exam: normal color, warm, dry SpO2 Interpretation: normal SpO2: 97 O2 Delivery: Room Air - Course Nursing assessment & vital signs reviewed: Yes EKG Interpreted by Me: RATE (78), Sinus Rhythm, NORMAL AXIS, NORMAL INTERVALS - CT Exams Abdomen/Pelvis CT Interpretation: Tele-radiologist Report (CT scan reveals 9 mm gallstone, 2 cm right renal cyst, 7 mm left renal cyst, diffuse colonic diverticulosis, multilevel degenerative spondylosis with 5 mm L4 spondylolisthesis. Remaining abdomen pelvis negative.) Ordered Tests: Active Orders 24 hr Category Date Time Status EKG-ER Only STAT Care 09/13/20 19:37 Active IV Insertion STAT Care 09/13/20 19:37 Active Oxygen-ED Only Nasal Cannula 3 lpm Care 09/13/20 19:59 Active ABDOMEN AND PELVIS W CONTRAST [CT] Stat Exams 09/13/20 20:36 Taken CBC W DIFF Stat Lab 09/13/20 19:55 Completed CMP Stat Lab 09/13/20 19:55 Completed LIPASE Stat Lab 09/13/20 19:55 Completed TROPONIN Q3H Lab 09/13/20 19:55 Completed TROPONIN Q3H Lab 09/13/20 22:45 Ordered TROPONIN Q3H Lab 09/14/20 01:45 Ordered TROPONIN Q3H Lab 09/14/20 04:45 Ordered TROPONIN Q3H Lab 09/14/20 07:45 Ordered UA W/RFX UR CULTURE Stat Lab 09/13/20 19:41 Completed Medication Summary Generic Name Dose Route Start Last Admin Trade Name Freq PRN Reason Stop Dose Admin Sodium Chloride 1,000 mls @ 100 mls/hr 09/13/20 19:45 09/13/20 20:03 Sodium Chloride 0.9% 1000 Ml IV 10/13/20 19:44 100 mls/hr .Q10H [place] Administration Discontinued Medications Generic Name Dose Route Start Last Admin Trade Name Freq PRN Reason Stop Dose Admin Morphine Sulfate 2 mg 09/13/20 19:37 09/13/20 20:03 Morphine Sulfate 2 Mg Inj IV 09/13/20 19:38 2 mg STAT ONE Administration Morphine Sulfate Confirm 09/13/20 20:00 Morphine Sulfate 2 Mg Inj Administered 09/13/20 20:01 Dose 2 mg .ROUTE .STK-MED ONE Ondansetron HCl 4 mg 09/13/20 19:37 09/13/20 20:03 Zofran 4 Mg/2 Ml Vial IV 09/13/20 19:38 4 mg STAT ONE Administration Ondansetron HCl Confirm 09/13/20 20:00 Zofran 4 Mg/2 Ml Vial Administered 09/13/20 20:01 Dose 4 mg .ROUTE .STK-MED ONE Lab/Rad Data: Laboratory Result Diagrams 09/13/20 19:55 09/13/20 19:55 Laboratory Results 09/13/20 09/13/20 09/13/20 Range/Units 19:55 19:55 19:55 WBC 7.7 (4.0-10.5) K/mm3 RBC 4.66 (4.1-5.4) M/mm3 Hgb 13.9 (12.0-16.0) gm/dl Hct 42.8 (35-47) % MCV 91.8 (78-100) fl MCH 29.8 (26-32) pg MCHC 32.5 (32-36) g/dl RDW 12.9 (11.5-14.0) % Plt Count 226 (150-450) K/mm3 MPV 9.7 (7.5-11.0) fl Gran % 66.1 H (36.0-66.0) % Eos # (Auto) 0.09 (0-0.5) Absolute Lymphs (auto) 1.76 (1.0-4.6) Absolute Monos (auto) 0.73 (0.0-1.3) Lymphocytes % 22.8 L (24.0-44.0) % Monocytes % 9.5 (0.0-12.0) % Eosinophils % 1.2 (0.00-5.0) % Basophils % 0.4 (0.0-0.4) % Absolute Granulocytes 5.11 (1.4-6.9) Basophils # 0.03 (0-0.4) Sodium 127 L (137-145) mmol/L Potassium 3.7 (3.5-5.1) mmol/L Chloride 87 L (98-107) mmol/L Carbon Dioxide 30 (22-30) mmol/L Anion Gap 13.6 (5-15) MEQ/L BUN 6 L (7-17) mg/dL Creatinine 0.68 (0.52-1.04) mg/dL Estimated GFR > 60.0 ML/MIN Glucose 103 (74-106) mg/dL Calcium 9.5 (8.4-10.2) mg/dL Total Bilirubin 0.70 (0.2-1.3) mg/dL AST 27 (14-36) U/L ALT 12 (0-35) U/L Alkaline Phosphatase 66 (38-126) U/L Troponin I < 0.012 (0.000-0.034) ng/mL Serum Total Protein 7.6 (6.3-8.2) g/dL Albumin 4.5 (3.5-5.0) g/dL Lipase 56 (23-300) U/L Urine Color (YELLOW) Urine Appearance (CLEAR) Urine pH (5-6) Ur Specific [place] (1.005-1.025) Urine Protein (Negative) Urine Ketones (NEGATIVE) Urine Blood (0-5) [place]/ul Urine Nitrite (NEGATIVE) Urine Bilirubin (NEGATIVE) Urine Urobilinogen (0-1) mg/dL Ur Leukocyte Esterase (NEGATIVE) Urine WBC (Auto) (0-5) /HPF Urine RBC (Auto) (0-2) /HPF U Epithel Cells (Auto) (FEW) /HPF Urine Bacteria (Auto) (NEGATIVE) /HPF Urine Culture Reflexed (NO) Urine Glucose (NEGATIVE) mg/dL 09/13/20 Range/Units 19:41 WBC (4.0-10.5) K/mm3 RBC (4.1-5.4) M/mm3 Hgb (12.0-16.0) gm/dl Hct (35-47) % MCV (78-100) fl MCH (26-32) pg MCHC (32-36) g/dl RDW (11.5-14.0) % Plt Count (150-450) K/mm3 MPV (7.5-11.0) fl Gran % (36.0-66.0) % Eos # (Auto) (0-0.5) Absolute Lymphs (auto) (1.0-4.6) Absolute Monos (auto) (0.0-1.3) Lymphocytes % (24.0-44.0) % Monocytes % (0.0-12.0) % Eosinophils % (0.00-5.0) % Basophils % (0.0-0.4) % Absolute Granulocytes (1.4-6.9) Basophils # (0-0.4) Sodium (137-145) mmol/L Potassium (3.5-5.1) mmol/L Chloride (98-107) mmol/L Carbon Dioxide (22-30) mmol/L Anion Gap (5-15) MEQ/L BUN (7-17) mg/dL Creatinine (0.52-1.04) mg/dL Estimated GFR ML/MIN Glucose (74-106) mg/dL Calcium (8.4-10.2) mg/dL Total Bilirubin (0.2-1.3) mg/dL AST (14-36) U/L ALT (0-35) U/L Alkaline Phosphatase (38-126) U/L Troponin I (0.000-0.034) ng/mL Serum Total Protein (6.3-8.2) g/dL Albumin (3.5-5.0) g/dL Lipase (23-300) U/L Urine Color STRAW (YELLOW) Urine Appearance CLEAR (CLEAR) Urine pH 6.0 (5-6) Ur Specific [place] 1.002 (1.005-1.025) Urine Protein NEGATIVE (Negative) Urine Ketones NEGATIVE (NEGATIVE) Urine Blood SMALL (0-5) [place]/ul Urine Nitrite NEGATIVE (NEGATIVE) Urine Bilirubin NEGATIVE (NEGATIVE) Urine Urobilinogen NEGATIVE (0-1) mg/dL Ur Leukocyte Esterase SMALL (NEGATIVE) Urine WBC (Auto) NONE (0-5) /HPF Urine RBC (Auto) 0-2 (0-2) /HPF U Epithel Cells (Auto) RARE (FEW) /HPF Urine Bacteria (Auto) NONE (NEGATIVE) /HPF Urine Culture Reflexed NO (NO) Urine Glucose NEGATIVE (NEGATIVE) mg/dL - Progress Progress: improved Progress Note: Patient reassessed. Pain improved. Work-up reveals a hyponatremia at 127. Patient denies any generalized weakness muscle twitches or any other symptoms associated with hyponatremia. CAT scan reveals a 9 mm gallstone. Patient also has a spondylolisthesis. Case discussed with Dr. Ames. He will follow up w ith patient regarding her hyponatremia. Dr. Ames agrees that patient should follow-up as an outpatient with [facility] regarding her 9 mm gallstone. Case discussed with Dr. Proctor general surgery covering [facility] who states that he will follow up with patient as an outpatient. He will be in the [place] office tomorrow if the need for follow-up is urgent. This information was relayed to our patient. Otherwise he can see her next Saturday and his usual office. Patient will be referred to orthopedic clinic regarding her spondylolisthesis. Plan of care discussed with patient. She agrees to discharge home and will follow up with orthopedic, general surgery and her prima care doctor all within 48 hours for reevaluation. Patient voices no other complaints or concerns at this time. 09/13/20 22:02 Discussed with .: Harrison Reardon Will see patient in: office Counseled pt/family regarding: lab results, diagnosis, need for follow-up, rad results - Departure Clinical Impression: Gallstone, Renal cyst, left, Hyponatremia, Diverticulosis, Spondylolysis, Spondylolisthesis at L4-L5 level Condition: Stable Critical Care Time: No Referrals: TYSHAWN AMES [Primary Care Provider] - YASMINE LLOYD [COURTESY STAFF] - Prescriptions: Ketorolac Tromethamine [Toradol] 10 mg PO TID #15 tablet Outpatient Orders: Ortho Referral Time Frame: 1 Day, Facility: [facility], Location: ORTHO CLINIC
[2020-09-13 22:39] VITALS: BP 148/86; PULSE 93; O2SAT 98
--- NOTE | 2020-09-14 08:45 | XRAY ---
Indication: Epigastric pain. Multiple contiguous axial images obtained through the abdomen and pelvis using 80 cc Isovue 370 contrast. Comparison: None Lung bases demonstrate pulmonary emphysema with scattered fibrosis/scarring. No infiltrate or effusion. Heart is not enlarged. Noncontrasted stomach and bowel loops appear nonobstructed. Small distal descending duodenal diverticulum. Appendix not seen. Diffuse scattered colonic diverticulosis. No free fluid/air. Incidental 9 mm gallstone, 2 cm right renal parapelvic cyst, and 2 left renal cysts largest 7 mm. Remaining liver, gallbladder, pancreas, spleen, adrenal glands, kidneys, ureters, bladder, and uterus unremarkable. Heavy scattered vascular calcifications. No AAA or pathologic retroperitoneal lymphadenopathy. Osseous structures intact with mild osteopenia, mild/moderate multilevel degenerative spondylosis, and 5 mm L4 spondylolisthesis. Impression: 1. Tiny gallstone, small duodenal diverticulum, diffuse scattered colonic diverticulosis, bilateral renal cysts, pulmonary emphysema, and chronic bony findings. 2. Remaining CT abdomen/pelvis with contrast exam is negative.
== END 2020-09-13 22:40 | disposition home or self-care (01) ==
LOC: ED 19:22
DX: N28.1 Cyst of kidney, acquired (principal); E87.1 Hypo-osmolality and hyponatremia; K57.90 Diverticulosis of intestine, part unspecified, without perforation or abscess without bleeding; M47.9 Spondylosis, unspecified; M43.10 Spondylolisthesis, site unspecified; Z79.899 Other long term (current) drug therapy; J44.9 Chronic obstructive pulmonary disease, unspecified
CPT/HCPCS: 36000; 36415; 74177; 80053; 81001; 83690; 84484; 85025; 93005; 96374; 96375; 99284; J2270; J2405

== ENCOUNTER 2022-02-20 10:00 | Emergency (ER) | payer MEDICARE ==
[2022-02-20] MEDS ORDERED: Sodium Chloride 0.9% 1000 ML 1,000 ML IV SCH (10:15)
[2022-02-20 10:40] LABS: Absolute Neutrophil Ct (ANC) 4.75 x10^3/uL (1.4-6.9); Basophil (Absolute #) 0.04 x10^3/uL (0-0.4); Eosinophil % 1.2 % (0.00-5.0); Eosinophil (Absolute #) 0.08 x10^3/uL (0-0.5); Hematocrit 41.4 % (35-47); Hemoglobin 14.1 g/dL (12.0-16.0); Lymphocyte (Absolute #) 0.91 x10^3/uL (1.0-4.6); Lymphocytes % 13.5 % (24.0-44.0); Mean Cell Volume 88.8 fL (78-100); Mean Corpuscular Hemoglobin 30.3 pg (26-32); Mean Corpuscular Hgb Concent. 34.1 g/dL (32-36); Mean Platelet Volume 8.9 fL (7.5-11.0); Monocyte (Absolute #) 0.95 x10^3/uL (0.0-1.3); Monocytes % 14.1 % (0.0-12.0); Neutrophil % 70.3 % (36.0-66.0); Platelet Count 222 x10^3/uL (150-450); Red Blood Count 4.66 x10^6/uL (4.1-5.4); Red Cell Distribution Width 11.5 % (11.5-14.0); White Blood Count 6.8 x10^3/uL (4.0-10.5)
--- NOTE | 2022-02-20 10:48 | XRAY ---
Indication: Short of breath. Comparison: February 11, 2020 Portable chest does not completely include left costophrenic angle. Remaining lungs again hyperinflated and clear with incidental left apical calcified granuloma. Heart not enlarged. Bony thorax intact again with osteopenia and degenerative changes. No new/acute findings.
[2022-02-20 10:53] LABS: ALKALINE PHOSPHATASE 83 U/L (38-126); AMYLASE 56 U/L (30-110); ANION GAP 12.2 MEQ/L (5-15); BLOOD UREA NITROGEN 12 mg/dL (7-17); CHLORIDE 74 mmol/L (98-107); Calcium 8.4 mg/dL (8.4-10.2); Carbon Dioxide 32 mmol/L (22-30); Creatinine 1 0.49 mg/dL (0.52-1.04); EST GLOMERULAR FILTRATION RATE > 60.0 ML/MIN; Glucose 93 mg/dL (74-106); LIPASE 54 U/L (23-300); Potassium 3.6 mmol/L (3.5-5.1); SGOT/AST 34 U/L (14-36); SGPT/ALT 17 U/L (0-35)
[2022-02-20] MEDS ORDERED: Sodium Chloride 0.9% 1000 ML 1,000 ML ONE (10:53)
[2022-02-20 10:54] LABS: INR 1.17 (0.8-3.0); PROTIME 12.2 SECONDS (9.4-12.5)
[2022-02-20 10:56] LABS: SODIUM 115 mmol/L (137-145)
[2022-02-20 11:40] LABS: Appearance CLEAR (CLEAR); Bilirubin NEGATIVE (NEGATIVE); Dipstick done @ ? MAIN LAB; Glucose NEGATIVE (NEGATIVE); Ketones TRACE (NEGATIVE); Nitrite NEGATIVE (NEGATIVE); Protein,Urine Dip NEGATIVE (Negative); RBC TRACE HEMOLYZED Ery/ul (0-5); Specific Gravity <=1.005 (1.005-1.025); Urobilinogen 1 mg/dL (0-1)
--- NOTE | 2022-02-20 11:40 | XRAY ---
Indication: Pain. Multiple contiguous axial images obtained through the abdomen and pelvis without contrast. Comparison: September 13, 2020 Patient's arms produces beam artifact. Lung bases again demonstrates pulmonary emphysema with fibrosis/scarring. Heart not enlarged. Noncontrasted stomach and bowel loops are nonobstructed. Appendix not seen. Again diffuse scattered colonic diverticulosis again greatest in sigmoid colon. No free fluid/air. Stable 9 mm gallstone and right renal parapelvic cyst. Remaining liver, gallbladder, pancreas, spleen, adrenal glands, kidneys, ureters, bladder, and uterus are unremarkable for noncontrast exam. There remains heavy scattered vascular calcifications without AAA. Osseous structures intact again with osteopenia, mild/moderate multilevel degenerative spondylosis, and grade 1 L4 listhesis. Impression: 1. New beam artifact from patient's arms. 2. Again pulmonary emphysema, gallstone, colonic diverticulosis, right renal cyst, arteriosclerotic disease, and chronic bony findings. 3. Remaining CT abdomen/pelvis without contrast exam is grossly negative.
[2022-02-20 11:42] LABS: Urine Cultured Indicated? NO
[2022-02-20] MEDS ORDERED: Ativan 2 MG/1 ML VIAL IV PRN (12:36)
[2022-02-20] MEDS ORDERED: Ativan 2 MG/1 ML VIAL ONE (12:36)
[2022-02-20] MEDS ORDERED: MORPHINE SULFATE 2 MG INJ IV PRN (12:36)
[2022-02-20] MEDS ORDERED: Ativan 2 MG/1 ML VIAL IV ONE (12:39)
[2022-02-20 12:45] LABS: Appearance CLEAR (CLEAR); Bilirubin NEGATIVE (NEGATIVE); Dipstick done @ ? MAIN LAB; Glucose NEGATIVE (NEGATIVE); Ketones NEGATIVE (NEGATIVE); Nitrite NEGATIVE (NEGATIVE); Protein,Urine Dip NEGATIVE (Negative); RBC TRACE HEMOLYZED Ery/ul (0-5); Urobilinogen 1 mg/dL (0-1)
[2022-02-20 12:47] LABS: Mucus SLIGHT /HPF (NEGATIVE)
[2022-02-20 12:51] LABS: Urine Cultured Indicated? NO
[2022-02-20 13:34] LABS: ANION GAP 9.4 MEQ/L (5-15); BLOOD UREA NITROGEN 10 mg/dL (7-17); CHLORIDE 81 mmol/L (98-107); Calcium 7.9 mg/dL (8.4-10.2); Carbon Dioxide 32 mmol/L (22-30); Creatinine 1 0.43 mg/dL (0.52-1.04); EST GLOMERULAR FILTRATION RATE > 60.0 ML/MIN; Glucose 87 mg/dL (74-106); Potassium 3.5 mmol/L (3.5-5.1)
[2022-02-20 13:38] LABS: SODIUM 119 mmol/L (137-145)
--- NOTE | 2022-02-20 13:48 | ERPHSYRPT ---
- History of Present Illness Time Seen by Provider: 02/20/22 10:15 Source: patient, family Exam Limitations: clinical condition Patient Subjective Stated Complaint: SOB Triage Nursing Assessment: Patient brought back to ED per w/c and transferred to bed with assist of 1. Patient alert to self only. Patient poor historian. Patient's daughter states she has been gone for 3 months and came to see patient and patient has had a decline and weight loss. Patient keeps saying "Please let me ". Patient denies pain or discomfort. Physician History: Patient is an 81-year-old white female who presents by wheelchair from home. She is in the company of her daughter who had not seen her for 3 months. She says that she has been continually short of breath she has had a history of COPD. She has not been eating she is not been drinking water and she has abdominal pain when she sits up. She has had 2 small bowel movements today she states that her mother has had a 50 pound weight loss over the last 4 months. She said the patient has not been eating and has liver problems. The patient simply says I want to . She came to the ER with an agreement with her children that they would not force her to stay. Timing/Duration: worse (Symptoms have been present for several weeks.), other Severity: severe Associated Symptoms: nausea, vomiting, abdominal pain, loss of appetite, weakness Allergies/Adverse Reactions: No Known Drug Allergies Allergy (Verified 02/20/22 10:04) Home Medications: Albuterol 8 gm Mdi Hfa [Ventolin Hfa MDI] 1 inh PO UD 02/11/20 [History] Hx Tetanus, Diphtheria Vaccination/Date Given: No Hx Influenza Vaccination/Date Given: Yes Hx Pneumococcal Vaccination/Date Given: Yes Immunizations Up to Date: Yes Travel Risk - International Travel Have you traveled outside of the country in past 3 weeks: No - Coronavirus Screening Are you exhibiting any of the following symptoms?: No Close contact with a COVID-19 positive Pt in past 14-21 Days: No - Vaccine Status Have you recieved a Covid-19 vaccination: No - Review of Systems All Other Systems: Unable due to condition - Past Medical History Pertinent Past Medical History: Yes Neurological History: No Pertinent History ENT History: Cataracts Cardiac History: No Pertinent History Respiratory History: COPD Endocrine Medical History: Liver Disease Musculoskeletal History: Arthritis GI Medical History: No Pertinent History History: Other Psycho-Social History: No Pertinent History Female Reproductive Disorders: No Pertinent History Other Medical History: PT POOR HISTORIAN - Past Surgical History Past Surgical History: Yes Neuro Surgical History: No Pertinent History Cardiac: No Pertinent History Respiratory: No Pertinent History Gastrointestinal: Hemorrhoidectomy Genitourinary: No Pertinent History Musculoskeletal: No Pertinent History Female Surgical History: No Pertinent History - Social History Smoking Status: Former smoker Exposure to second hand smoke: No Drug Use: none Patient Lives Alone: No - Nursing Vital Signs Nursing Vital Signs: Initial Vital Signs Temperature 97.3 F 02/20/22 10:06 Pulse Rate 78 02/20/22 10:06 Respiratory Rate 18 02/20/22 10:06 Blood Pressure 168/101 02/20/22 10:06 O2 Sat by Pulse Oximetry 97 02/20/22 10:06 Pain Scale Pain Intensity 0 - Physical Exam General Appearance: moderate distress, cachetic, thin Eye Exam: PERRL/EOMI, eyes nml inspection Ears, Nose, Throat Exam: normal ENT inspection, TMs normal, pharynx normal, dry mucous membranes Neck Exam: normal inspection, non-tender, supple, full range of motion Respiratory Exam: lungs clear, diminished breath sounds, No respiratory distress Cardiovascular Exam: regular rate/rhythm Gastrointestinal/Abdomen Exam: normal bowel sounds, tenderness Back Exam: normal inspection Extremity Exam: normal inspection Neurologic Exam: alert (Patient is alert but somewhat confused) Skin Exam: normal color, warm, dry SpO2 Interpretation: normal SpO2: 95 O2 Delivery: Room Air - Course Nursing assessment & vital signs reviewed: Yes EKG Interpreted by Me: RATE (80), Sinus Rhythm, Other (APCs probable left atrial enlargement poor R wave progression and nonspecific ST-T wave changes) - Radiology Exams Chest X-ray Interpretation: Negative - CT Exams Abdomen/Pelvis CT Interpretation: Other (Unchanged from previous CT scan gallstones noted) Ordered Tests: Active Orders 24 hr Category Date Time Status EKG-ER Only STAT Care 02/20/22 10:13 Active Nagy [Catheter-Coleman Nagy] STAT Care 02/20/22 12:30 Active IV Insertion STAT Care 02/20/22 10:13 Active Oxygen-ED Only Nasal Cannula 3 lpm Care 02/20/22 13:30 Active ABDOMEN AND PELVIS W/0 CONTRAS [CT] Stat Exams 02/20/22 10:14 Completed CHEST 1 VIEW (PORTABLE) Stat Exams 02/20/22 10:14 Completed AMYLASE Stat Lab 02/20/22 10:30 Completed BLOOD CULTURE Stat Lab 02/20/22 10:30 Received BMP Stat Lab 02/20/22 12:51 Completed CBC W DIFF Stat Lab 02/20/22 10:30 Completed CMP Stat Lab 02/20/22 10:30 Completed LIPASE Stat Lab 02/20/22 10:30 Completed Lactic Acid Stat Lab 02/20/22 10:13 Completed PROTIME WITH INR Stat Lab 02/20/22 10:30 Completed TROPONIN Q4H Lab 02/20/22 10:30 Completed TROPONIN Q4H Lab 02/20/22 14:16 Completed TROPONIN Q4H Lab 02/20/22 18:15 Ordered UA W/RFX CULTURE Stat Lab 02/20/22 10:51 Completed UA W/RFX CULTURE Stat Lab 02/20/22 12:31 Completed Medication Summary Generic Name Dose Route Start Last Admin Trade Name Freq PRN Reason Stop Dose Admin Sodium Chloride 1,000 mls @ 200 mls/hr 02/20/22 10:15 02/20/22 12:34 Sodium Chloride 0.9% 1000 Ml IV 03/22/22 10:14 Infused .Q5H [place] Infusion Morphine Sulfate 2 mg 02/20/22 12:36 02/20/22 12:39 Morphine Sulfate 2 Mg/Ml Inj IV 02/25/22 12:35 2 mg Q2H PRN PRN Administration PAIN Discontinued Medications Generic Name Dose Route Start Last Admin Trade Name Fresanjana PRN Reason Stop Dose Admin Lorazepam 0.5 mg 02/20/22 12:36 Lorazepam 2 Mg/1 Ml 2 Mg Vial IV 03/22/22 12:35 Q4H PRN PRN ANXIETY Lorazepam Confirm 02/20/22 12:36 Lorazepam 2 Mg/1 Ml 2 Mg Vial Administered 02/20/22 12:37 Dose 2 mg .ROUTE .STK-MED ONE Lorazepam 1 mg 02/20/22 12:39 02/20/22 12:40 Lorazepam 2 Mg/1 Ml 2 Mg Vial IV 02/20/22 12:40 1 mg STAT ONE Administration Lab/Rad Data: Laboratory Result Diagrams 02/20/22 10:30 02/20/22 12:51 Laboratory Results 02/20/22 02/20/22 02/20/22 Range/Units 14:16 12:51 12:31 WBC (4.0-10.5) x10^3/uL RBC (4.1-5.4) x10^6/uL Hgb (12.0-16.0) g/dL Hct (35-47) % MCV (78-100) fL MCH (26-32) pg MCHC (32-36) g/dL RDW (11.5-14.0) % Plt Count (150-450) x10^3/uL MPV (7.5-11.0) fL Gran % (36.0-66.0) % Immature Gran % (Auto) (0.00-0.4) % Nucleat RBC Rel Count (0.00-0.1) % Eos # (Auto) (0-0.5) x10^3/uL Immature Gran # (Auto) (0.00-0.03) x10^3u/L Absolute Lymphs (auto) (1.0-4.6) x10^3/uL Absolute Monos (auto) (0.0-1.3) x10^3/uL Absolute Nucleated RBC (0.00-0.01) x10^3u/L Lymphocytes % (24.0-44.0) % Monocytes % (0.0-12.0) % Eosinophils % (0.00-5.0) % Basophils % (0.0-0.4) % Absolute Granulocytes (1.4-6.9) x10^3/uL Basophils # (0-0.4) x10^3/uL PT (9.4-12.5) SECONDS INR (0.8-3.0) Sodium 119 L* (137-145) mmol/L Potassium 3.5 (3.5-5.1) mmol/L Chloride 81 L (98-107) mmol/L Carbon Dioxide 32 H (22-30) mmol/L Anion Gap 9.4 (5-15) MEQ/L BUN 10 (7-17) mg/dL Creatinine 0.43 L (0.52-1.04) mg/dL Estimated GFR > 60.0 ML/MIN Glucose 87 (74-106) mg/dL Lactic Acid (0.4-2.0) Calcium 7.9 L (8.4-10.2) mg/dL Total Bilirubin (0.2-1.3) mg/dL AST (14-36) U/L ALT (0-35) U/L Alkaline Phosphatase (38-126) U/L Troponin I < 0.012 (0.000-0.034) ng/mL Serum Total Protein (6.3-8.2) g/dL Albumin (3.5-5.0) g/dL Amylase (30-110) U/L Lipase (23-300) U/L Urinalys Dipstick Clnc MAIN LAB Urine Color LT.YELLOW (YELLOW) Urine Appearance CLEAR (CLEAR) Urine pH 7.0 (5-6) Ur Specific [place] 1.010 (1.005-1.025) POC Urine Protein Conf NEGATIVE (Negative) Urine Ketones NEGATIVE (NEGATIVE) Urine Nitrite NEGATIVE (NEGATIVE) Urine Bilirubin NEGATIVE (NEGATIVE) Urine Urobilinogen 1 (0-1) mg/dL Urine Leukocytes NEGATIVE (NEGATIVE) Urine WBC (Auto) NONE (0-5) /HPF Urine RBC (Auto) NONE (0-2) /HPF U Epithel Cells (Auto) NONE (FEW) /HPF Urine Bacteria (Auto) NONE (NEGATIVE) /HPF Urine RBC TRACE HEMOLYZED (0-5) [place]/ul Urine Mucus (Auto) SLIGHT (NEGATIVE) /HPF Ur Culture Indicated? NO Urine Glucose NEGATIVE (NEGATIVE) mg/dL 02/20/22 02/20/22 02/20/22 Range/Units 10:51 10:30 10:30 WBC (4.0-10.5) x10^3/uL RBC (4.1-5.4) x10^6/uL Hgb (12.0-16.0) g/dL Hct (35-47) % MCV (78-100) fL MCH (26-32) pg MCHC (32-36) g/dL RDW (11.5-14.0) % Plt Count (150-450) x10^3/uL MPV (7.5-11.0) fL Gran % (36.0-66.0) % Immature Gran % (Auto) (0.00-0.4) % Nucleat RBC Rel Count (0.00-0.1) % Eos # (Auto) (0-0.5) x10^3/uL Immature Gran # (Auto) (0.00-0.03) x10^3u/L Absolute Lymphs (auto) (1.0-4.6) x10^3/uL Absolute Monos (auto) (0.0-1.3) x10^3/uL Absolute Nucleated RBC (0.00-0.01) x10^3u/L Lymphocytes % (24.0-44.0) % Monocytes % (0.0-12.0) % Eosinophils % (0.00-5.0) % Basophils % (0.0-0.4) % Absolute Granulocytes (1.4-6.9) x10^3/uL Basophils # (0-0.4) x10^3/uL PT 12.2 (9.4-12.5) SECONDS INR 1.17 (0.8-3.0) Sodium (137-145) mmol/L Potassium (3.5-5.1) mmol/L Chloride (98-107) mmol/L Carbon Dioxide (22-30) mmol/L Anion Gap (5-15) MEQ/L BUN (7-17) mg/dL Creatinine (0.52-1.04) mg/dL Estimated GFR ML/MIN Glucose (74-106) mg/dL Lactic Acid (0.4-2.0) Calcium (8.4-10.2) mg/dL Total Bilirubin (0.2-1.3) mg/dL AST (14-36) U/L ALT (0-35) U/L Alkaline Phosphatase (38-126) U/L Troponin I < 0.012 (0.000-0.034) ng/mL Serum Total Protein (6.3-8.2) g/dL Albumin (3.5-5.0) g/dL Amylase (30-110) U/L Lipase (23-300) U/L Urinalys Dipstick Clnc MAIN LAB Urine Color LT.YELLOW (YELLOW) Urine Appearance CLEAR (CLEAR) Urine pH 7.0 (5-6) Ur Specific [place] <=1.005 (1.005-1.025) POC Urine Protein Conf NEGATIVE (Negative) Urine Ketones TRACE (NEGATIVE) Urine Nitrite NEGATIVE (NEGATIVE) Urine Bilirubin NEGATIVE (NEGATIVE) Urine Urobilinogen 1 (0-1) mg/dL Urine Leukocytes NEGATIVE (NEGATIVE) Urine WBC (Auto) NONE (0-5) /HPF Urine RBC (Auto) NONE (0-2) /HPF U Epithel Cells (Auto) NONE (FEW) /HPF Urine Bacteria (Auto) NONE (NEGATIVE) /HPF Urine RBC TRACE HEMOLYZED (0-5) [place]/ul Urine Mucus (Auto) (NEGATIVE) /HPF Ur Culture Indicated? NO Urine Glucose NEGATIVE (NEGATIVE) mg/dL 02/20/22 02/20/22 02/20/22 Range/Units 10:30 10:30 10:13 WBC 6.8 (4.0-10.5) x10^3/uL RBC 4.66 (4.1-5.4) x10^6/uL Hgb 14.1 (12.0-16.0) g/dL Hct 41.4 (35-47) % MCV 88.8 (78-100) fL MCH 30.3 (26-32) pg MCHC 34.1 (32-36) g/dL RDW 11.5 (11.5-14.0) % Plt Count 222 (150-450) x10^3/uL MPV 8.9 (7.5-11.0) fL Gran % 70.3 H (36.0-66.0) % Immature Gran % (Auto) 0.3 (0.00-0.4) % Nucleat RBC Rel Count 0.0 (0.00-0.1) % Eos # (Auto) 0.08 (0-0.5) x10^3/uL Immature Gran # (Auto) 0.02 (0.00-0.03) x10^3u/L Absolute Lymphs (auto) 0.91 L (1.0-4.6) x10^3/uL Absolute Monos (auto) 0.95 (0.0-1.3) x10^3/uL Absolute Nucleated RBC 0.00 (0.00-0.01) x10^3u/L Lymphocytes % 13.5 L (24.0-44.0) % Monocytes % 14.1 H (0.0-12.0) % Eosinophils % 1.2 (0.00-5.0) % Basophils % 0.6 (0.0-0.4) % Absolute Granulocytes 4.75 (1.4-6.9) x10^3/uL Basophils # 0.04 (0-0.4) x10^3/uL PT (9.4-12.5) SECONDS INR (0.8-3.0) Sodium 115 L* (137-145) mmol/L Potassium 3.6 (3.5-5.1) mmol/L Chloride 74 L (98-107) mmol/L Carbon Dioxide 32 H (22-30) mmol/L Anion Gap 12.2 (5-15) MEQ/L BUN 12 (7-17) mg/dL Creatinine 0.49 L (0.52-1.04) mg/dL Estimated GFR > 60.0 ML/MIN Glucose 93 (74-106) mg/dL Lactic Acid 0.9 (0.4-2.0) Calcium 8.4 (8.4-10.2) mg/dL Total Bilirubin 1.10 (0.2-1.3) mg/dL AST 34 (14-36) U/L ALT 17 (0-35) U/L Alkaline Phosphatase 83 (38-126) U/L Troponin I (0.000-0.034) ng/mL Serum Total Protein 7.0 (6.3-8.2) g/dL Albumin 4.0 (3.5-5.0) g/dL Amylase 56 (30-110) U/L Lipase 54 (23-300) U/L Urinalys Dipstick Clnc Urine Color (YELLOW) Urine Appearance (CLEAR) Urine pH (5-6) Ur Specific [place] (1.005-1.025) POC Urine Protein Conf (Negative) Urine Ketones (NEGATIVE) Urine Nitrite (NEGATIVE) Urine Bilirubin (NEGATIVE) Urine Urobilinogen (0-1) mg/dL Urine Leukocytes (NEGATIVE) Urine WBC (Auto) (0-5) /HPF Urine RBC (Auto) (0-2) /HPF U Epithel Cells (Auto) (FEW) /HPF Urine Bacteria (Auto) (NEGATIVE) /HPF Urine RBC (0-5) [place]/ul Urine Mucus (Auto) (NEGATIVE) /HPF Ur Culture Indicated? Urine Glucose (NEGATIVE) mg/dL - Progress Progress: unchanged Progress Note: 02/20/22 17:[address] with the family regarding Ms. Smith's desire to at home. Hospice was contacted and has arranged for hospice follow-up in the home. The patient is stated multiple and repeatedly that she wishes to . I think the daughter is now in agreement with her mother's wishes. - Departure Departure Disposition: Home Clinical Impression: Hyponatremia, Failure to thrive, COPD exacerbation Condition: Poor Critical Care Time: No Referrals: TYSHAWN AMES [Primary Care Provider] - Follow up/PCP as directed Instructions: Chronic Obstructive Pulmonary Disease, Exacerbation of COPD (DC), Hyponatremia (DC)
[2022-02-20 17:22] VITALS: BP 100/52; PULSE 69
[2022-02-20 17:28] VITALS: O2SAT 95
== END 2022-02-20 18:19 | disposition home or self-care (01) ==
LOC: ED 10:00
DX: R62.7 Adult failure to thrive (principal); J44.1 Chronic obstructive pulmonary disease with (acute) exacerbation; E87.1 Hypo-osmolality and hyponatremia; R06.02 Shortness of breath; R10.9 Unspecified abdominal pain; R11.2 Nausea with vomiting, unspecified; R53.1 Weakness; Z79.899 Other long term (current) drug therapy; Z28.310 Unvaccinated for COVID-19
CPT/HCPCS: 36000; 36415; 51702; 71045; 74176; 80048; 80053; 81015; 82150; 83605; 83690; 84484; 85025; 85610; 87040; 93005; 96374; 96375; 99284; J2060; J2270